=== PATIENT | male | born 1965 | race Caucasian/White ===

== ENCOUNTER 2021-12-25 12:18 | Emergency (ER) | payer BC ==
--- OUTSIDE RECORDS SUMMARY | 2021-12-25 12:24 | XMS REPORT | Continuity of Care Document ---
:1965 Author Organization [facility] t Address [address] [place] [address] [address] [place] [address] Care Team Providers Name Role Phone Thierno Delaney DO Attending Clinician Kelvin WHEELER Attending Clinician Doctor Unassigned, Name Attending Clinician Unavailable Payers Payer Name Policy Type Policy Number Effective Date Expiration Date S ource Problems Condition Condition Condition Status Onset Resolution Last Treating Co mments Source Name Details Category Date Date Treatment Clinician Date Papule of Papule of Disease Active 2014-10 Uni vers skin skin 2-06 ity of 00:00: [address] Inguinal Inguinal Disease Active 2014-10 Unive rs swelling swelling 2-06 ity of 00:00: [address] Penile Penile Disease Active 2014-10 Univers lesion lesion 2-06 ity of 00:00: [address] Allergic Allergic Disease Active 2014-10 Unive rs rhinitis rhinitis 2-03 ity of 00:00: [address] Allergies, Adverse Reactions, Alerts This patient has no known allergies or adverse reactions. Social History Social Habit Start Date Stop Date Quantity Comments Source History of Snuff User University of tobacco use [facility] Alcohol intake 2019-08-13 2019-08-13 Current drinker Unive rsity of 00:00:00 00:00:00 of alcohol [facility] (finding) [facility] Tobacco use and 2019-08-13 2019-08-13 Former user Universi ty of exposure 00:00:00 00:00:00 [facility] Sex Ass[birth year] At [birth year] Universit y of 00:00:00 00:00:00 [facility] Smoking Status Start Date Stop Date Source Never smoker [facility] Medications Ordered Filled Start Stop Current Ordering Indication Dosage Frequency Signature Comments Components Source Medication Medication Date Date Medication? Clinician (SIG) Name Name lisinopril Yes [id number] 20mg Take 1 U nivers 20 mg 3-06 tablet by ity of tablet 00:00: mouth [place] 00 daily. Medical Branch lisinopril 2020-0 Yes [id number] 20mg Take 1 U nivers 20 mg 3-06 tablet by ity of tablet 00:00: mouth [place] 00 daily. Medical Branch lisinopril 2020-0 Yes [id number] 20mg Take 1 U nivers 20 mg 3-06 tablet by ity of tablet 00:00: mouth [place] 00 daily. Medical Branch lisinopril 2020-0 Yes [id number] 20mg Take 1 U nivers 20 mg 3-06 tablet by ity of tablet 00:00: mouth [place] 00 daily. Medical Branch lisinopril 2020-0 Yes [id number] 20mg Take 1 U nivers 20 mg 2-07 tablet by ity of tablet 00:00: mouth [place] 00 daily. Medical Branch lisinopril 2020-0 2020- No [id number] 20mg Take 1 Univers 20 mg 2-07 03-06 tablet by ity of tablet 00:00: 00:00 mouth [place] 00 :00 daily. Medical Branch lisinopril 2019-0 Yes [id number] 20mg Take 1 U nivers 20 mg 1-15 tablet by ity of tablet 00:00: mouth [place] 00 daily. Medical Branch lisinopril 2019-0 2020- No [id number] 20mg Take 1 Univers 20 mg 1-15 02-07 tablet by ity of tablet 00:00: 00:00 mouth [place] 00 :00 daily. Medical Branch lisinopril 2018-10 2020- No [id number] 20mg Take 1 Univers 20 mg 2-19 -15 tablet by ity of tablet 00:00: 00:00 mouth [place] 00 :00 daily. Medical Branch predniSONE Yes Take 4 Unive rs 10 mg 2-13 tabs PO ity of tablet 00:00: qAM x 2 [place] 00 days, then Medical 3 tabs x 3 Branch days, then 2 tabs x 3 days, then 1 tab x 3 days predniSONE Yes Take 4 Unive rs 10 mg 2-13 tabs PO ity of tablet 00:00: qAM x 2 [place] 00 days, then Medical 3 tabs x 3 Branch days, then 2 tabs x 3 days, then 1 tab x 3 days predniSONE Yes Take 4 Unive rs 10 mg 2-13 tabs PO ity of tablet 00:00: qAM x 2 [place] 00 days, then Medical 3 tabs x 3 Branch days, then 2 tabs x 3 days, then 1 tab x 3 days predniSONE Yes Take 4 Unive rs 10 mg 2-13 tabs PO ity of tablet 00:00: qAM x 2 [place] 00 days, then Medical 3 tabs x 3 Branch days, then 2 tabs x 3 days, then 1 tab x 3 days predniSONE Yes Take 4 Unive rs 10 mg 2-13 tabs PO ity of tablet 00:00: qAM x 2 [place] 00 days, then Medical 3 tabs x 3 Branch days, then 2 tabs x 3 days, then 1 tab x 3 days predniSONE Yes Take 4 Unive rs 10 mg 2-13 tabs PO ity of tablet 00:00: qAM x 2 [place] 00 days, then Medical 3 tabs x 3 Branch days, then 2 tabs x 3 days, then 1 tab x 3 days predniSONE Yes Take 4 Unive rs 10 mg 2-13 tabs PO ity of tablet 00:00: qAM x 2 [place] 00 days, then Medical 3 tabs x 3 Branch days, then 2 tabs x 3 days, then 1 tab x 3 days zolpidem 2016-10 Yes 10mg Take 10 mg Uni vers (AMBIEN) 10 0-24 by mouth ity of mg tablet 14:51: at bedtime [place] 51 as needed Medical for Branch Insomnia. FLUTICASONE 2016-10 Yes 50mg 50 mg. Univ ers PROPIONATE, 0-24 ity of BULK, MISC 14:51: [place] [address] Medical Branch fexofenadin 2016-10 Yes 180mg Take 180 U nivers e (JOSE 0-24 mg by ity of ALLERGY) 14:51: mouth [place] 180 mg 51 daily. Medical tablet Branch zolpidem 2016-10 Yes 10mg Take 10 mg Uni vers (AMBIEN) 10 0-24 by mouth ity of mg tablet 14:51: at bedtime [place] 51 as needed Medical for Branch Insomnia. FLUTICASONE 2016-10 Yes 50mg 50 mg. Univ ers PROPIONATE, 0-24 ity of BULK, MISC 14:51: [place] [address] Medical Branch fexofenadin 2016-10 Yes 180mg Take 180 U nivers e (JOSE 0-24 mg by ity of ALLERGY) 14:51: mouth [place] 180 mg 51 daily. Medical tablet Branch zolpidem 2016-10 Yes 10mg Take 10 mg Uni vers (AMBIEN) 10 0-24 by mouth ity of mg tablet 14:51: at bedtime [place] 51 as needed Medical for Branch Insomnia. FLUTICASONE 2016-10 Yes 50mg 50 mg. Univ ers PROPIONATE, 0-24 ity of BULK, MISC 14:51: [place] [address] Medical Branch fexofenadin 2016-10 Yes 180mg Take 180 U nivers e (JOSE 0-24 mg by ity of ALLERGY) 14:51: mouth [place] 180 mg 51 daily. Medical tablet Branch zolpidem 2016-10 Yes 10mg Take 10 mg Uni vers (AMBIEN) 10 0-24 by mouth ity of mg tablet 14:51: at bedtime [place] 51 as needed Medical for Branch Insomnia. FLUTICASONE 2016-10 Yes 50mg 50 mg. [facility] ers PROPIONATE, 0-24 ity of BULK, MISC 14:51: [place] [address] Medical Branch fexofenadin 2016-10 Yes 180mg Take 180 U nivers e (JOSE 0-24 mg by ity of ALLERGY) 14:51: mouth [place] 180 mg 51 daily. Medical tablet Branch zolpidem 2016-10 Yes 10mg Take 10 mg Uni vers (AMBIEN) 10 0-24 by mouth ity of mg tablet 14:51: at bedtime [place] 51 as needed Medical for Branch Insomnia. FLUTICASONE 2016-10 Yes 50mg 50 mg. Univ ers PROPIONATE, 0-24 ity of BULK, MISC 14:51: [place] [address] Medical Branch fexofenadin 2016-10 Yes 180mg Take 180 U nivers e (JOSE 0-24 mg by ity of ALLERGY) 14:51: mouth [place] 180 mg 51 daily. Medical tablet Branch zolpidem 2016-10 Yes 10mg Take 10 mg Uni vers (AMBIEN) 10 0-24 by mouth ity of mg tablet 14:51: at bedtime [place] 51 as needed Medical for Branch Insomnia. FLUTICASONE 2016-10 Yes 50mg 50 mg. Univ ers PROPIONATE, 0-24 ity of BULK, MISC 14:51: [place] [address] Medical Branch fexofenadin 2016-10 Yes 180mg Take 180 U nivers e (JOSE 0-24 mg by ity of ALLERGY) 14:51: mouth [place] 180 mg 51 daily. Medical tablet Branch zolpidem 2016-10 Yes 10mg Take 10 mg Uni vers (AMBIEN) 10 0-24 by mouth ity of mg tablet 14:51: at bedtime [place] 51 as needed Medical for Branch Insomnia. FLUTICASONE 2016-10 Yes 50mg 50 mg. Univ ers PROPIONATE, 0-24 ity of BULK, MISC 14:51: [place] [address] Medical Branch fexofenadin 2016-10 Yes 180mg Take 180 U nivers e (JOSE 0-24 mg by ity of ALLERGY) 14:51: mouth [place] 180 mg 51 daily. Medical tablet Branch Immunizations Ordered Filled Immunization Date Status Comments Sourc e Immunization Name Name [facility] 2019-02-17 Completed University of 00:00:00 [facility] 2019-02-17 Completed University of 00:00:00 [facility] 2019-02-17 Completed University of 00:00:00 [facility] 2019-02-17 Completed University of 00:00:00 [facility] 2019-02-17 Completed University of 00:00:00 [facility] 2019-02-17 Completed University of 00:00:00 [facility] 2019-02-17 Completed University of 00:00:00 [facility] Procedures Procedure Date / Time Performing Clinician Source Performed AUTHORIZATION FOR 2019-11-22 06:01:00 Doctor Unassigned, No [facility] RELEASE OF PHI Name Medical Branch Encounters Start End Encounter Admission Attending Care Care Encounter Source Date/Time Date/Time Type Type Clinicians Facility Department ID 2021-01-09 2021-01-09 Patient Rhett [facility] [id number] Univers 00:00:00 00:00:00 Outreach Chevy PASCUAL [id number] i ty of [facility] [id number] Tosha DUCKWORTH [phone] Me dical 388 Branch 2020-01-20 2020-01-20 Telephone Kelvin AKMARK [id number] Univers 00:00:00 00:00:00 Pascual Reeves [id number] i ty [id number] [phone] [address] 2019-12-27 2019-12-27 Bryandoug Warren [facility] [id number] Univers 00:00:00 00:00:00 [facility] [id number] it y of [place] [id number] [place] as Professio [phone] [address] One 2019-12-24 2019-12-24 [facility] [id number] Univers 00:00:00 00:00:00 [facility] [id number] it y of [place] [id number] [place] Professio [phone] [address] 2019-11-26 2019-11-26 [facility] [id number] Univers 00:00:00 00:00:00 [facility] [id number] it y of [place] [id number] [place] Professio [phone] [address] One 2019-11-22 2019-11-22 Orders Doctor RAFA [id number] Univers 00:00:00 00:00:00 Only Unassigned, NEGAR [id number] ity of [place] [facility] [id number] [place] as [phone] [address] 2019-11-03 2019-11-03 [facility] [id number] Univers 00:00:00 00:00:00 [facility] [id number] it y of [place] [id number] [place] Professio [phone] [address] Office [facility] One Results This patient has no known results.
[2021-12-25] MEDS ORDERED: NA CHLORIDE 0.9% 1,000 ML ONE (13:28)
--- NOTE | 2021-12-25 13:29 | RAD REPORT ---
EXAM DESCRIPTION: CT - Head Brain Wo Cont - 12/25/2021 1:19 pm CLINICAL HISTORY: Alteration of awareness/confusion COMPARISON: None TECHNIQUE: Computed axial tomography of the head was obtained. IV contrast was not requested. All CT scans are performed using dose optimization technique as appropriate and may include automated exposure control or mA/KV adjustment according to patient size. FINDINGS: An intracranial bleed is not seen . The ventricles are normal in caliber. No extra-axial fluid collection is noted. Low-density areas are present within the medial frontal lobes bilaterally Fluid within the sinuses/ mastoids is not seen. IMPRESSION: Low-density areas within the medial frontal lobes bilaterally probably either representi ng volume averaging of CSF or chronic changes. No acute intracranial abnormality is seen. If patient's symptoms persist MRI of the brain would be r ecommended.
[2021-12-25 13:36] LABS: Absolute Lymphocytes (CBC) 1.6 K/uL (0.7-4.9); Hematocrit 40.6 % (39.6-49.0); Lymphocytes % 15.6 % (15.3-44.8); MPV 8.1 fL (7.6-11.3); RBC Red Blood Cell Count 4.63 M/uL (4.33-5.43)
[2021-12-25 13:38] LABS: Urine Blood Negative (Negative); Urine Glucose Negative (Negative); Urine Protein Negative (Negative); Urine Specific Gravity 1.015 (1.005-1.030); Urine pH 7.5 (5.0-7.0)
[2021-12-25 13:49] LABS: Urine Bacteria <20 /HPF (NONE SEEN); Urine RBC <5 /HPF (NONE SEEN)
[2021-12-25 13:52] LABS: Barbiturates NEGATIVE (NEGATIVE); Benzodiazepines NEGATIVE (NEGATIVE); Cocaine NEGATIVE (NEGATIVE); METHAMPHETAM NEGATIVE (NEGATIVE); Methadone NEGATIVE (NEGATIVE); Opiates NEGATIVE (NEGATIVE); Phencyclidine NEGATIVE (NEGATIVE); THC Cannibis POSITIVE (NEGATIVE)
[2021-12-25 13:53] LABS: ALT/SGPT 37 U/L (12-78); AST/SGOT 37 U/L (15-37); Albumin 4.1 g/dL (3.4-5.0); Alkaline Phosphatase 113 U/L (45-117); BUN Blood Urea Nitrogen 8 mg/dL (7-18); Bicarbonate 29 mmol/L (21-32); Bilirubin Direct 0.2 mg/dL (0-0.2); Bilirubin Total 0.5 mg/dL (0.2-1.0); Glucose Level 127 mg/dL (74-106); Lipase 244 U/L (73-393); Potassium 3.9 mmol/L (3.5-5.1); Protein, Total 8.7 g/dL (6.4-8.2); Sodium Level 132 mmol/L (136-145)
[2021-12-25 14:05] LABS: Thyroid Stimulating Hormone 1.42 uIU/mL (0.360-3.740)
[2021-12-25 14:19] LABS: SARS-COV-2 RT PCR NEGATIVE (NEGATIVE)
--- NOTE | 2021-12-25 14:24 | ER ---
Nurse's Notes [facility] Jennifer Name: Guanakito Arreola Age: 56 yrs Sex: Male : 1965 Arrival Date: 12/25/2021 Time: 12:23 Bed 5 Private MD: César Cleaning T Diagnosis: Cerebral Atrophy;Infectious mononucleosis, unspecified without complication;Alcohol dependence with alcohol-induced sleep disorder Presentation: 12/25 12:49 Chief complaint: Patient states: Confusion, lethargic, fatigue off/on since . ll1 Coronavirus screen: Vaccine status: Patient reports being unvaccinated. Client denies travel out of the [place] in the last 14 days. fatigue, At this time, the client does not indicate any symptoms associated with coronavirus-19. Ebola Screen: Patient denies travel to an Ebola-affected area in the 21 days before illness onset. Initial Sepsis Screen: Does the patient meet any 2 criteria? No. Patient's initial sepsis screen is negative. Does the patient have a suspected source of infection? No. Patient's initial sepsis screen is negative. Risk Assessment: Do you want to hurt yourself or someone else? Patient reports no desire to harm self or others. Onset of symptoms was December 20, 2021. 12:49 Method Of Arrival: Ambulatory ll1 12:49 Acuity: ONI 2 ll1 Triage Assessment: 13:00 General: Appears in no apparent distress. Behavior is calm, cooperative, appropriate ll1 for age. Pain: Denies pain. Neuro: Reports confusion, lethargic. Historical: - Allergies: 12:59 No Known Allergies; ll1 - PMHx: 12:59 Hypertensive disorder; ll1 - PSHx: 12:59 None; ll1 - Immunization history:: Client reports having NOT received the Covid vaccine. - Social history:: Smoking status: Patient denies any tobacco usage or history of. - Family history:: not pertinent. - Hospitalizations: : No recent hospitalization is reported. Screenin:21 Abuse screen: Denies threats or abuse. Denies injuries from another. Nutritional murphy screening: No deficits noted. Tuberculosis screening: No symptoms or risk factors identified. Fall Risk IV access (20 points). Assessment: 13:21 General: Appears in no apparent distress. Behavior is anxious. Pain: Denies pain. murphy Neuro: Reports fatigue and confusion. Cardiovascular: Reports fatigue. Vital Signs: 12:49 BP 159 / 93; Pulse 70; Resp 16; Temp 98.4; Pulse Ox 99% on R/A; Weight 81.65 kg; Height murphy 6 ft. 0 in. (182.88 cm); Pain 0/10; 13:54 BP 145 / 84; Pulse 69; Resp 18; Pulse Ox 100% on R/A; ic1 14:31 BP 147 / 81; Pulse 72; Resp 20; Pulse Ox 100% on R/A; ic1 12:49 Body Mass Index 24.41 (81.65 kg, 182.88 cm) murphy ED Course: 12:23 Patient arrived in ED. mr 12:24 César Cleaning MD is Private Physician. mr 12:47 Jose Cleveland MD is Attending Physician. rn 12:48 Arm band placed on Patient placed in an exam room, on a stretcher. ll1 13:01 Triage completed. ll1 13:19 CT Head Brain wo Cont In Process Unspecified. EDMS 13:20 Michelle Acevedo, RN is Primary Nurse. murphy 13:20 ETOH Level Sent. murphy 13:20 Urine Drug Screen Sent. murphy 13:20 COVID-19/FLU A+B (Document "Date of Onset" if Symptomatic) Sent. murphy 13:20 Lipase Sent. murphy 13:20 Petroleum Screen Profile Sent. murphy 13:20 LFT's Sent. murphy 13:20 AMMONIA Sent. murphy 13:20 Basic Metabolic Panel Sent. murphy 13:20 CBC with Diff Sent. murphy 13:21 Patient has correct armband on for positive identification. Bed in low position. murphy 13:21 No provider procedures requiring assistance completed. Inserted saline lock: 20 gauge murphy in right antecubital area, using aseptic technique. 13:37 Urine Microscopic Only Sent. ic1 13:43 T4 Free Sent. murphy 13:43 TSH Sent. murphy 14:23 Franklyn Bennett MD is Referral Physician. rn 14:31 IV discontinued, intact, bleeding controlled, No redness/swelling at site. Pressure ic1 dressing applied. Administered Medications: 13:37 Drug: NS 0.9% 1000 ml Route: IV; Rate: 1000 ml; Site: right antecubital; ic1 Outcome: 14:23 Discharge ordered by . rn 14:31 Discharged to home ambulatory, with significant other. ic1 14:31 Condition: stable 14:31 Discharge instructions given to patient, Instructed on discharge instructions, follow up and referral plans. Demonstrated understanding of instructions, follow-up care. 14:35 Patient left the ED. ic1 Signatures: Dispatcher [employer]am BoboJose MD MD rn Lewis, Lynsay, RN RN ll1 Michelle Acevedo RN RN ha Creggett, Iesha, RN RN ic1 Corrections: (The following items were deleted from the chart) 12:59 12:59 Immunization history: Client reports having NOT received the Covid vaccine. ll1 ll1 13:23 12:49 BP 159 / 93; Pulse 70bpm; Resp 16bpm; Temp 98.4F; 81.65 kg; Height 6 ft. 0 in.; murphy BMI: 24.4; Pain 0/10; ll1
--- NOTE | 2021-12-25 14:24 | EDPHYS ---
Physician Documentation [facility] Jennifer Name: Guanakito Arreola Age: 56 yrs Sex: Male : 1965 Arrival Date: 12/25/2021 Time: 12:23 Bed 5 Private MD: César Cleaning T ED Physician Jose Cleveland HPI: 12/25 13:25 This 56 yrs old Male presents to ER via Ambulatory with complaints of Fatigue,Confusion.rn 13:25 The patient presents with confusion. Onset: The symptoms/episode began/occurred 4 rn day(s) ago. Possible causes: unknown. Associated signs and symptoms: Pertinent positives: confusion, Pertinent negatives: abdominal pain, ataxia, blurred vision, chest pain, diaphoresis, headache, palpitations, seizure, shortness of breath. Current symptoms: In the emergency department the patient's symptoms have improved. The patient has not experienced similar symptoms in the past. The patient has not recently seen a physician. Pt and report confusion for last 4 days, drinks daily and large amount, last drink yesterday, had not tried to quit recently, has still been drinking daily except for today. No fever. Bloodwork last week didn't reveal anything abnormal. No fall or head injury. states had an argument the other day, he drove off, then didn't recall argument and got lost, didn't know where he was going. 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 Reports increased fatigue lately. No fever/cough/sob/chest pain/abd pain /vomiting/diarrhea. No recent change in medication. Reports mother had early onset dementia.. Historical: - Allergies: 12:59 No Known Allergies; ll1 - PMHx: 12:59 Hypertensive disorder; ll1 - PSHx: 12:59 None; ll1 - Immunization history:: Client reports having NOT received the Covid vaccine. - Social history:: Smoking status: Patient denies any tobacco usage or history of. - Family history:: not pertinent. - Hospitalizations: : No recent hospitalization is reported. ROS: 13:25 Constitutional: Negative for fever, chills, and weight loss, Eyes: Negative for injury, rn pain, redness, and discharge, ENT: Negative for injury, pain, and discharge, Neck: Negative for injury, pain, and swelling, Cardiovascular: Negative for chest pain, palpitations, and edema, Respiratory: Negative for shortness of breath, cough, wheezing, and pleuritic chest pain, Abdomen/GI: Negative for abdominal pain, nausea, vomiting, diarrhea, and constipation, Back: Negative for injury and pain, : Negative for injury, bleeding, discharge, and swelling, MS/Extremity: Negative for injury and deformity, Skin: Negative for injury, rash, and discoloration, Neuro: Negative for headache, weakness, numbness, tingling, and seizure. Exam: 13:25 Constitutional: This is a well developed, well nourished patient who is awake, alert, rn and in no acute distress. Ambulatory to room without difficulty or assistance. Head/Face: Normocephalic, atraumatic. Eyes: Pupils equal round and reactive to light, extra-ocular motions intact. Lids and lashes normal. Conjunctiva and sclera are non-icteric and not injected. Cornea within normal limits. Periorbital areas with no swelling, redness, or edema. ENT: dry MM Neck: Trachea midline, no thyromegaly or masses palpated, and no cervical lymphadenopathy. Supple, full range of motion without nuchal rigidity, or vertebral point tenderness. No Meningismus. Cardiovascular: Regular rate and rhythm. No pulse deficits. Respiratory: Speaking full sentences, unlabored. No increased work of breathing, no retractions or nasal flaring. Abdomen/GI: Soft, non-tender Skin: Warm, dry MS/ Extremity: Pulses equal, no cyanosis. Neurovascular intact. Full, normal range of motion. Equal circumference. Neuro: Awake and alert, GCS 15, oriented to person, place, time, and situation. Cranial nerves II-XII grossly intact. Motor strength 5/5 in all extremities. Sensory grossly intact. Cerebellar exam normal. Normal gait. Mild extremity tremor. Vital Signs: 12:49 BP 159 / 93; Pulse 70; Resp 16; Temp 98.4; Pulse Ox 99% on R/A; Weight 81.65 kg; Height murphy 6 ft. 0 in. (182.88 cm); Pain 0/10; 13:54 BP 145 / 84; Pulse 69; Resp 18; Pulse Ox 100% on R/A; ic1 14:31 BP 147 / 81; Pulse 72; Resp 20; Pulse Ox 100% on R/A; ic1 12:49 Body Mass Index 24.41 (81.65 kg, 182.88 cm) murphy MDM: 12:47 Patient medically screened. rn 14:22 Differential Diagnosis: electrolyte abnormality, volume depletion, ETOH withdrawal, rn Crockett, viral syndrome, thyroid abnormality, depression. Data reviewed: vital signs, nurses notes, lab test result(s), EKG, radiologic studies, CT scan, and as a result, I will discharge patient. Counseling: I had a detailed discussion with the patient and/or guardian regarding: the historical points, exam findings, and any diagnostic results supporting the discharge/admit diagnosis, lab results, radiology results, the need for outpatient follow up, to return to the emergency department if symptoms worsen or persist or if there are any questions or concerns that arise at home. Response to treatment: the patient's symptoms have mildly improved after treatment, and as a result, I will discharge patient. Special discussion: I discussed with the patient/guardian in detail that at this point there is no indication for admission to the hospital. It is understood, however, that if the symptoms persist or worsen the patient needs to return immediately for re-evaluation. ED course: Had long talk about ETOH dependence and need to quit, understands, mono+, return precautions given and understood.. 12/25 13:07 Order name: CBC with Diff; Complete Time: 14: rn 12/25 13:07 Order name: Basic Metabolic Panel; Complete Time: 14: rn 12/25 13:07 Order name: Urine Microscopic Only; Complete Time: 14: rn 12/25 13:07 Order name: LFT's; Complete Time: 14: rn 12/25 13:07 Order name: AMMONIA; Complete Time: 14: rn 12/25 13:07 Order name: Crockett Screen Profile; Complete Time: 14: rn 12/25 13:07 Order name: CT Head Brain wo Cont; Complete Time: 13:30 rn 12/25 13:07 Order name: COVID-19/FLU A+B (Document "Date of Onset" if Symptomatic); Complete Time: rn 14:22 12/25 13:07 Order name: Lipase; Complete Time: 14: rn 12/25 13:07 Order name: Urine Drug Screen; Complete Time: 14: rn 12/25 13:08 Order name: ETOH Level; Complete Time: 14: rn 12/25 13:29 Order name: TSH; Complete Time: 14:22 rn 12/25 13:29 Order name: T4 Free; Complete Time: 14:22 rn 12/25 13:38 Order name: Urine Dipstick-Ancillary; Complete Time: 14: EDMS 12/25 13:07 Order name: IV Start; Complete Time: 13:20 rn 12/25 13:07 Order name: Urine Dipstick-Ancillary (obtain specimen); Complete Time: 13:37 rn 12/25 13:07 Order name: EKG; Complete Time: 13:08 rn 12/25 13:07 Order name: EKG - Nurse/Tech; Complete Time: 13:37 rn 12/25 13:07 Order name: Cardiac monitoring; Complete Time: 13:20 rn 12/25 13:07 Order name: O2 Sat Monitoring; Complete Time: 13:20 rn Administered Medications: 13:37 Drug: NS 0.9% 1000 ml Route: IV; Rate: 1000 ml; Site: right antecubital; ic1 Disposition Summary: 12/25/21 14:23 Discharge Ordered Location: Home rn Problem: new rn Symptoms: have improved rn Condition: Stable rn Diagnosis - Cerebral Atrophy rn - Infectious mononucleosis, unspecified without complication rn - Alcohol dependence with alcohol-induced sleep disorder rn Followup: rn - With: Private Physician - When: As needed - Reason: Recheck today's complaints, Re-evaluation by your physician Followup: rn - With: Franklyn Bennett MD - When: As needed - Reason: Recheck today's complaints, Re-evaluation by your physician Discharge Instructions: - Discharge Summary Sheet rn - Infectious Mononucleosis rn - Alcohol Abuse and Dependence Information, Adult rn Forms: - Medication Reconciliation Form rn - Thank You Letter rn - Antibiotic commercial litigation attorney - Prescription Opioid Use rn Signatures: Dispatcher [employer] Jose Albrecht MD MD rn Lewis, Lynsay, RN RN ll1 Smitha Tay RN RN ic1 Corrections: (The following items were deleted from the chart) 12:59 12:59 Immunization history: Client reports having NOT received the Covid vaccine. ll1 ll1 13:30 13:25 Constitutional: This is a well developed, well nourished patient who is awake, rn alert, and in no acute distress. Ambulatory to room without difficulty or assistance. Head/Face: Normocephalic, atraumatic. Eyes: Pupils equal round and reactive to light, extra-ocular motions intact. Lids and lashes normal. Conjunctiva and sclera are non-icteric and not injected. Cornea within normal limits. Periorbital areas with no swelling, redness, or edema. ENT: dry MM Cardiovascular: Regular rate and rhythm. No pulse deficits. Respiratory: Speaking full sentences, unlabored. No increased work of breathing, no retractions or nasal flaring. Abdomen/GI: Soft, non-tender rn
[2021-12-25 14:40] VITALS: TEMP 98.4
[2021-12-25 14:42] VITALS: O2SAT 100
[2021-12-25 14:43] VITALS: BP 147/81
--- NOTE | 2021-12-26 12:55 | EKG ---
Test Date: 2021-12-25 Test Time: 13:28:02 [employer]ck[employer] Fishing Vessel: IC MEASUREMENT RESULTS: Intervals: Rate: 67 FL: 164 QRSD: 102 QT: 412 QTc: 435 [place]: P: 29 FL: 164 QRS: 25 T: 37 INTERPRETIVE STATEMENTS: Normal sinus rhythm Possible Left atrial enlargement Borderline ECG No previous ECG available for comparison Electronically Signed On 12-26-21 12:52:08 ZIPPER JOINER by Paulino Tobias
== END 2021-12-25 14:35 | disposition home or self-care (01) ==
LOC: ER 12:18
DX: G31.9 Degenerative disease of nervous system, unspecified (principal); B27.90 Infectious mononucleosis, unspecified without complication; F10.282 Alcohol dependence with alcohol-induced sleep disorder; I10 Essential (primary) hypertension; Z20.822 Contact with and (suspected) exposure to COVID-19
CPT/HCPCS: 93005; 85025; 80048; 36415; 80320; 82140; 86308; 80076; 84443; 84439; 83690; 0240U; 80307; 70450; 99284; J7030; 81003; 81015

== ENCOUNTER 2022-06-28 14:48 | Emergency (ER) | payer BC, OTHER ==
--- OUTSIDE RECORDS SUMMARY | 2022-06-28 14:51 | XMS REPORT | Continuity of Care Document ---
:1965 Author Organization [facility] t Address [address] [place] [address] [address] [place] [address] Care Team Providers Name Role Phone Chevy Delaney DO Attending Clinician Pascual Warren MD Attending Clinician Doctor Unassigned, [place] Attending Clinician Unavailable Payers Payer Name Policy Type Policy Number Effective Date Expiration Date S ource Problems Condition Condition Condition Status Onset Resolution Last Treating Co mments Source Name Details Category Date Date Treatment Clinician Date Papule of Papule of Disease Active 2014-10 Uni vers skin skin 2-06 ity of 00:00: [address] Inguinal Inguinal Disease Active 2014-10 Unive rs swelling swelling 2-06 ity of 00:00: [address] Penile Penile Disease Active 2014-10 Univers lesion lesion 2-06 ity of 00:00: [address] Allergic Allergic Disease Active 2014-10 Unive rs rhinitis rhinitis 2-03 ity of 00:00: [address] Allergies, Adverse Reactions, Alerts This patient has no known allergies or adverse reactions. Social History Social Habit Start Date Stop Date Quantity Comments Source History of Snuff User University of tobacco use [facility] Alcohol intake 2019-08-13 2019-08-13 Current drinker Unive rsity of 00:00:00 00:00:00 of alcohol [facility] (finding) [place] Tobacco use and 2019-08-13 2019-08-13 Former user Universi ty of exposure 00:00:00 00:00:00 [facility] Sex Ass[birth year] At [birth year] Universit y of 00:00:00 00:00:00 [facility] Smoking Status Start Date Stop Date Source Never smoker [facility] Medications Ordered Filled Start Stop Current Ordering Indication Dosage Frequency Signature Comments Components Source Medication Medication Date Date Medication? Clinician (SIG) Name Name sabrapril 2020-0 Yes [id number] 20mg Take 1 U nivers 20 mg 3-06 tablet by ity of tablet 00:00: mouth [place] 00 daily. Medical Branch lisinopril 2020-0 Yes [id number] 20mg Take 1 U nivers 20 mg 3-06 tablet by ity of tablet 00:00: mouth [place] 00 daily. Medical Branch lisinopril 2019-0 Yes [id number] 20mg Take 1 U nivers 20 mg 3-06 tablet by ity of tablet 00:00: mouth [place] 00 daily. Medical Branch lisinopril 2019-0 Yes [id number] 20mg Take 1 U nivers 20 mg 3-06 tablet by ity of tablet 00:00: mouth [place] 00 daily. [facility] Branch lisinopril 2019-0 Yes [id number] 20mg Take 1 U nivers 20 mg 2-07 tablet by ity of tablet 00:00: mouth [place] 00 daily. [facility] Branch lisinopril 2019-0 2020- No [id number] 20mg Take 1 Univers 20 mg 2-07 03-06 tablet by ity of tablet 00:00: 00:00 mouth [place] 00 :00 daily. [facility] Branch lisinopril 2019-0 Yes [id number] 20mg Take 1 U nivers 20 mg 1-15 tablet by ity of tablet 00:00: mouth [place] 00 daily. [facility] Branch lisinopril 2019-0 2020- No [id number] 20mg Take 1 Univers 20 mg 1-15 02-07 tablet by ity of tablet 00:00: 00:00 mouth [place] 00 :00 daily. [facility] Branch lisinopril 2018-10 2020- No [id number] 20mg Take 1 Univers 20 mg 2-19 01-15 tablet by ity of tablet 00:00: 00:00 [...] PROPIONATE, 0-24 ity of BULK, MISC 14:51: [place] [id number] Medical Branch fexofenadin 2016-10 Yes 180mg Take [...] PROPIONATE, 0-24 ity of BULK, MISC 14:51: [place] [id number] Medical Branch fexofenadin 2016-10 Yes 180mg Take 180 U nivers e (JOSE 0-24 mg by ity of ALLERGY) 14:51: mouth [place] 180 mg 51 daily. Medical tablet Branch zolpidem 2016-10 Yes 10mg Take 10 mg Uni vers (AMBIEN) 10 0-24 by mouth ity of mg tablet 14:51: at bedtime [place] 51 as needed Medical for Branch Insomnia. FLUTICASONE 2017 Yes 50mg 50 mg. Univ ers PROPIONATE, 0-24 ity of BULK, MISC 14:51: [place] [id number] Medical Branch fexofenadin 2016-10 Yes 180mg Take [...] PROPIONATE, 0-24 ity of BULK, MISC 14:51: [place] [address] Medical Branch fexofenadin 2016-10 Yes 180mg Take [...] PROPIONATE, 0-24 ity of BULK, MISC 14:51: [place] [address] Medical Branch fexofenadin 2016-10 Yes 180mg Take [...] PROPIONATE, 0-24 ity of BULK, MISC 14:51: [place] [address] Medical Branch fexofenadin 2016-10 Yes 180mg Take [...] Insomnia. FLUTICASONE 2016-10 Yes 50mg 50 mg. [facility] ers PROPIONATE, 0-24 ity of BULK, MISC 14:51: [place] [id number] Medical Branch fexofenadin 2016-10 Yes 180mg Take 180 U nivers e (JOSE 0-24 mg by ity of ALLERGY) 14:51: mouth [place] 180 mg 51 daily. Medical tablet Branch Immunizations Ordered Filled Immunization Date Status Comments Sour e Immunization Name Name [facility] 2019-02-17 Completed University 00:00:00 [facility] 2019-02-17 Completed University 00:00:00 [facility] 2019-02-17 Completed University of 00:00:00 [facility] 2019-02-17 Completed University of 00:00:00 [facility] 2019-02-17 Completed University of 00:00:00 [facility] 2019-02-17 Completed University of 00:00:00 [facility] 2019-02-17 Completed University 00:00:00 [facility] Procedures Procedure Date / Time Performing Clinician Source Performed AUTHORIZATION FOR 2019-11-22 06:01:00 Doctor Unassigned, No [facility] RELEASE OF PHI Name Medical Branch Encounters Start End Encounter Admission Attending Care Care Encounter Source Date/Time Date/Time Type Type Clinicians Facility Department ID 2021-01-09 2021-01-09 Patient ALEXIS Delaney [id number] Univers 00:00:00 00:00:00 Outreach Chevy PRIMARY [id number] i ty of [facility] [id number] [place] vega GUCCI [id number] Nh dical 388 Branch 2020-01-20 2020-01-20 Telephone ALEXIS Warren [id number] Univers 00:00:00 00:00:00 Pascual Reeves [id number] i ty [id number] Profess[place] [phone] [address] 2019-12-27 2019-12-27 [facility] [id number] Univers 00:00:00 00:00:00 Pascual [facility] [id number] it y of [place] [id number] Bruno as Professio [phone] [address] Office [facility] One 2019-12-24 2019-12-24 [facility] [id number] Univers 00:00:00 00:00:00 Pascual [facility] [id number] it y of [place] [id number] [place] as Professio [phone] [address] 2019-11-26 2019-11-[address] [facility] [id number] Univers 00:00:00 00:00:00 [facility] [id number] it y of [place] [id number] [place] Professio [phone] [address] One 2019-11-22 2019-11-22 Orders Doctor RAFA [id number] Univers 00:00:00 00:00:00 Only Unassigned, NEGAR [id number] ity of [place] [facility] [id number] Bruno as [phone] [address] 2019-11-03 2019-11-03 [facility] [id number] Univers 00:00:00 00:00:00 [facility] [id number] it y of [place] [id number] [place] as Professio [phone] [address] Office [facility] One Results This patient has no known results.
--- NOTE | 2022-06-28 15:59 | RAD REPORT ---
EXAM DESCRIPTION: CT - Head Brain Wo Cont - 06/28/2022 3:37 pm CLINICAL HISTORY: Seizure COMPARISON: December 2021 TECHNIQUE: Computed axial tomography of the head was obtained. IV contrast was not requested. All CT scans are performed using dose optimization technique as appropriate and may include automated exposure control or mA/KV adjustment according to patient size. FINDINGS: An intracranial bleed is not seen . The ventricles are normal in caliber. No extra-axial fluid collection is noted. Low-density within the medial frontal lobes unchanged is chronic. Fluid within the sinuses/ mastoids is not seen. IMPRESSION: No acute intracranial abnormality is seen. If patient's symptoms persist MRI of the bra in would be recommended.
[2022-06-28 16:11] LABS: Absolute Lymphocytes (CBC) 0.6 K/uL (0.7-4.9); Hematocrit 38.9 % (39.6-49.0); Lymphocytes % 6.1 % (15.3-44.8); MCV 92.7 fL (80-100); MPV 8.2 fL (7.6-11.3)
[2022-06-28 16:11] LABS: Urine Blood Negative (Negative); Urine Glucose Negative (Negative); Urine Protein Trace (Negative)
[2022-06-28 16:12] LABS: Blood Morphology Comment NOT SEEN (NOT SEEN); Platelet Estimate ADEQ; White Blood Cell Scan OK (OK)
[2022-06-28 16:24] LABS: Barbiturates NEGATIVE (NEGATIVE); Benzodiazepines NEGATIVE (NEGATIVE); Cocaine NEGATIVE (NEGATIVE); METHAMPHETAM NEGATIVE (NEGATIVE); Methadone NEGATIVE (NEGATIVE); Opiates NEGATIVE (NEGATIVE); Phencyclidine NEGATIVE (NEGATIVE); THC Cannibis NEGATIVE (NEGATIVE)
--- NOTE | 2022-06-28 16:34 | RAD REPORT ---
EXAM DESCRIPTION: Lei Single View06/28/2022 3:52 pm CLINICAL HISTORY: Seizure COMPARISON: none FINDINGS: The lungs appear clear of acute infiltrate. The heart is normal size IMPRESSION: No acute abnormalities displayed
[2022-06-28 17:00] LABS: Albumin 3.7 g/dL (3.4-5.0); Bilirubin Total 0.6 mg/dL (0.2-1.0); Magnesium 2.6 mg/dL (1.8-2.4); Protein, Total 8.2 g/dL (6.4-8.2)
[2022-06-28 17:24] LABS: Troponin High Sensitivity 6.5 pg/mL (<58.9)
[2022-06-28] MEDS ORDERED: NA CHLORIDE 0.9% 1,000 ML ONE (17:41)
[2022-06-28] MEDS ORDERED: LEVETIRACETAM 500 MG/5 ML VIAL IV ONE (17:48)
[2022-06-28] MEDS ORDERED: NA CHLORIDE 0.9% 0 ML ONE (17:48)
--- NOTE | 2022-06-28 19:06 | ER ---
Nurse's Notes [facility] Jennifer Name: Guanakito Arreola Age: 57 yrs Sex: Male : 1965 Arrival Date: 06/28/2022 Time: 14:53 Bed 7 Private MD: Diagnosis: Other seizures Presentation: 06/28 14:57 Chief complaint: Patient states: New onset seizure that occurred 30 minutes ago. BGL ss 140. Coronavirus screen: Client denies travel out of the [place] in the last 14 days. Ebola Screen: Patient denies exposure to infectious person. Patient denies travel to an Ebola-affected area in the 21 days before illness onset. Initial Sepsis Screen: Does the patient meet any 2 criteria? No. Patient's initial sepsis screen is negative. Does the patient have a suspected source of infection? No. Patient's initial sepsis screen is negative. Risk Assessment: Do you want to hurt yourself or someone else? Patient reports no desire to harm self or others. Onset of symptoms was June 28, 2022. 14:57 Method Of Arrival: EMS: [facility] ss 14:57 Acuity: ONI 2 ss 15:01 Care prior to arrival: IV initiated. 20 GA, in the left antecubital area, Glucose ss check: 140. 17:48 Note Patient ambulated to bathroom with standby assistance for BM. Patient tolerated jl7 well. Triage Assessment: 16:31 General: Appears in no apparent distress. Behavior is calm, cooperative, appropriate ko1 for age, anxious. Pain: Denies pain. Neuro: No deficits noted. Historical: - Allergies: 14:59 Unable to obtain; ss - PMHx: 14:59 Hypertensive disorder; ss - Immunization history:: Adult Immunizations unknown, Client reports receiving the 2nd dose of the Covid vaccine. - Social history:: Patient uses alcohol, Drinks on Wednesdays and Saturdays only, approximately 4 beers. Smoking status: Patient denies any tobacco usage or history of. Screenin:51 Abuse screen: Denies threats or abuse. Denies injuries from another. Nutritional ll3 screening: No deficits noted. Tuberculosis screening: No symptoms or risk factors identified. 19:52 Fall Risk None identified. ll3 Vital Signs: 14:57 BP 126 / 69; Pulse 85; Resp 18; Temp 98.7; Pulse Ox 96% on R/A; Weight 81.65 kg; Height ss 6 ft. 0 in. (182.88 cm); Pain 0/10; 15:59 BP 134 / 77; Pulse 81; Resp 15; Pulse Ox 98% ; ko1 16:33 BP 146 / 78; Pulse 79; Resp 16; Pulse Ox 99% ; Pain 0/10; ko1 14:57 Body Mass Index 24.41 (81.65 kg, 182.88 cm) ss [place] Coma Score: 14:59 Eye Response: spontaneous(4). Verbal Response: confused(4). Motor Response: obeys ss commands(6). Total: 14. ED Course: 14:53 Patient arrived in ED. ko1 14:55 Suhali Kovacs is PHCP. jl9 14:55 Mk Yanez MD is Attending Physician. jl9 14:59 Triage completed. ss 14:59 Arm band placed on right wrist. ss 15:39 CT Head Brain wo Cont In Process Unspecified. EDMS 15:48 Tasha Loyola, RN is Primary Nurse. ko1 15:53 XRAY Chest (1 view) In Process Unspecified. EDMS 16:04 CMP Sent. ko1 16:04 Procalcitonin Sent. ko1 16:04 Magnesium Sent. ko1 16:04 Lactate Sent. ko1 16:04 CBC with Diff Sent. ko1 16:04 Troponin HS Sent. ko1 16:07 UDS Sent. ko1 19:51 Patient has correct armband on for positive identification. Placed in gown. Bed in low ll3 position. Call light in reach. Side rails up X 1. 19:51 No provider procedures requiring assistance completed. IV discontinued, intact, ll3 bleeding controlled, No redness/swelling at site. Pressure dressing applied. 19:52 Seizure precautions initiated. ll3 Administered Medications: 17:31 Drug: NS 0.9% 1000 ml Route: IV; Rate: 1000 ml; Site: left forearm; ko1 17:35 Drug: levETIRAcetam 1000 mg Route: IV; Rate: per protocol; Site: left forearm; ko1 Medication: 19:52 VIS not applicable for this client. ll3 Outcome: 19:05 Discharge ordered by . jl9 19:51 Discharged to home ambulatory, with significant other. ll3 19:51 Condition: stable 19:51 Discharge instructions given to patient, significant other, Instructed on discharge instructions, follow up and referral plans. Demonstrated understanding of instructions, follow-up care. 19:52 Patient left the ED. ll3 Signatures: Dispatcher [employer] EDMS Starr Hobbs RN RN Adilene Harrell RN RN jl7 Taiwo Farmer RN RN ll3 Suhail Kovacs jl9 Tasha Loyola RN RN ko1
--- NOTE | 2022-06-28 19:06 | EDPHYS ---
Physician Documentation [facility] Name: Guanakito Arreola Age: 57 yrs Sex: Male : 1965 Arrival Date: 06/28/2022 Time: 14:53 Bed 7 Private MD: Mk Singer HPI: 06/28 16:17 This 57 yrs old Male presents to ER via EMS with complaints of Probable jl9 Seizure. 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 Patient AAOxPPTE and denies any pain or distress. Does not recall having a seizure. . 16:17 The patient presents after having a single isolated seizure, that lasted 20 second(s). jl9 Character of seizure(s): Loss of consciousness: the patient experienced loss of consciousness, Motor activity: generalized, Incontinence: none, Apnea: the patient did not experience apnea, Circulation: the patient did not experience evidence of pulse disturbance, Eye movements: are unknown. Seizure onset: today. Context: occurred at work. Seizure Hx: the patient has no previous seizure history. Associated injury: The patient did not suffer any apparent associated injury. EMS care: none. Current symptoms: Currently, the patient is not experiencing any symptoms. The patient has not experienced similar symptoms in the past. Historical: - Allergies: 14:59 Unable to obtain; ss - PMHx: 14:59 Hypertensive disorder; ss - Immunization history:: Adult Immunizations unknown, Client reports receiving the 2nd dose of the Covid vaccine. - Social history:: Patient uses alcohol, Drinks on Wednesdays and Saturdays only, approximately 4 beers. Smoking status: Patient denies any tobacco usage or history of. ROS: 16:19 Constitutional: Negative for fever, chills, and weight loss, Eyes: Negative for injury, jl9 pain, redness, and discharge, ENT: Negative for injury, pain, and discharge, Neck: Negative for injury, pain, and swelling, Cardiovascular: Negative for chest pain, palpitations, and edema, Respiratory: Negative for shortness of breath, cough, wheezing, and pleuritic chest pain, Abdomen/GI: Negative for abdominal pain, nausea, vomiting, diarrhea, and constipation, Back: Negative for injury and pain, : Negative for injury, bleeding, discharge, and swelling, MS/Extremity: Negative for injury and deformity, Skin: Negative for injury, rash, and discoloration. 16:19 Psych: Negative for depression, anxiety, suicide ideation, homicidal ideation, and hallucinations, Allergy/Immunology: Negative for hives, rash, and allergies, Endocrine: Negative for neck swelling, polydipsia, polyuria, polyphagia, and marked weight changes, Hematologic/Lymphatic: Negative for swollen nodes, abnormal bleeding, and unusual bruising. 16:19 Neuro: Positive for seizure activity. Exam: 16:19 Constitutional: This is a well developed, well nourished patient who is awake, alert, jl9 and in no acute distress. Head/Face: Normocephalic, atraumatic. Eyes: Pupils equal round and reactive to light, extra-ocular motions intact. Lids and lashes normal. Conjunctiva and sclera are non-icteric and not injected. Cornea within normal limits. Periorbital areas with no swelling, redness, or edema. ENT: Mucous membranes moist. Neck: Trachea midline, no thyromegaly or masses palpated, and no cervical lymphadenopathy. Supple, full range of motion without nuchal rigidity, or vertebral point tenderness. No Meningismus. Chest/axilla: Normal chest wall appearance and motion. Nontender with no deformity. No lesions are appreciated. Cardiovascular: Regular rate and rhythm with a normal S1 and S2. No gallops, murmurs, or rubs. Normal PMI, no JVD. No pulse deficits. Respiratory: Lungs have equal breath sounds bilaterally, clear to auscultation and percussion. No rales, rhonchi or wheezes noted. No increased work of breathing, no retractions or nasal flaring. Abdomen/GI: Soft, non-tender, with normal bowel sounds. No distension or tympany. No guarding or rebound. No evidence of tenderness throughout. Back: No spinal tenderness. No costovertebral tenderness. Full range of motion. Skin: Warm, dry with normal turgor. Normal color with no rashes, no lesions, and no evidence of cellulitis. MS/ Extremity: Pulses equal, no cyanosis. Neurovascular intact. Full, normal range of motion. Neuro: Awake and alert, GCS 15, oriented to person, place, time, and situation. Cranial nerves II-XII grossly intact. Motor strength 5/5 in all extremities. Sensory grossly intact. Cerebellar exam normal. Normal gait. Psych: Awake, alert, with orientation to person, place and time. Behavior, mood, and affect are within normal limits. Vital Signs: 14:57 BP 126 / 69; Pulse 85; Resp 18; Temp 98.7; Pulse Ox 96% on R/A; Weight 81.65 kg; Height ss 6 ft. 0 in. (182.88 cm); Pain 0/10; 15:59 BP 134 / 77; Pulse 81; Resp 15; Pulse Ox 98% ; ko1 16:33 BP 146 / 78; Pulse 79; Resp 16; Pulse Ox 99% ; Pain 0/10; ko1 14:57 Body Mass Index 24.41 (81.65 kg, 182.88 cm) ss Melody Coma Score: 14:59 Eye Response: spontaneous(4). Verbal Response: confused(4). Motor Response: obeys ss commands(6). Total: 14. MDM: 14:55 Patient medically screened. jl9 16:19 Data reviewed: vital signs, nurses notes. jl9 18:24 Test interpretation: by ED physician or midlevel provider: ECG. 9 18:41 Differential diagnosis: cerebral vascular accident, drug overdose, seizure, TIA. jl9 Counseling: I had a detailed discussion with the patient and/or guardian regarding: the historical points, exam findings, and any diagnostic results supporting the discharge/admit diagnosis, lab results, radiology results, the need for outpatient follow up, a neurologist. 19:04 Counseling: I had a detailed discussion with the patient and/or guardian regarding: jl9 Patient wishes to go home and not wait for the repeat lactate. Patient states he is asymptomatic. Partner at bedside. Patient agrees to follow up with neurology.. 06/28 15:06 Order name: CBC with Diff; Complete Time: 16:17 06/28 15:06 Order name: Troponin HS; Complete Time: 17:27 06/28 15:06 Order name: UDS; Complete Time: 16:35 06/28 15:06 Order name: Magnesium; Complete Time: 17:27 06/28 15:06 Order name: Lactate; Complete Time: 16:52 06/28 15:06 Order name: Procalcitonin; Complete Time: 17:27 06/28 15:06 Order name: XRAY Chest (1 view); Complete Time: 16:35 06/28 15:06 Order name: CT Head Brain wo Cont; Complete Time: 16:17 [facility] 06/28 15:06 Order name: CMP; Complete Time: 17:27 06/28 16:11 Order name: Urine Dipstick-Ancillary; Complete Time: 16:17 [facility] 06/28 16:12 Order name: CBC Smear Scan; Complete Time: 16:17 [facility] 06/28 15:06 Order name: EKG; Complete Time: 15:07 06/28 15:06 Order name: Cardiac monitoring; Complete Time: 15:48 06/28 15:06 Order name: EKG - Nurse/Tech; Complete Time: 16:01 [facility] 06/28 15:06 Order name: IV Saline Lock; Complete Time: 16:01 06/28 15:06 Order name: Labs collected and sent; Complete Time: 16:01 06/28 15:06 Order name: O2 Per Protocol; Complete Time: 15:48 06/28 15:06 Order name: O2 Sat Monitoring; Complete Time: 15:48 06/28 15:06 Order name: Urine Dipstick-Ancillary (obtain specimen); Complete Time: 16:07 [facility] 06/28 16:16 Order name: Labs - recollect needed: recollect green top; Complete Time: 16:43 bd Administered Medications: 17:31 Drug: NS 0.9% 1000 ml Route: IV; Rate: 1000 ml; Site: left forearm; ko1 17:35 Drug: levETIRAcetam 1000 mg Route: IV; Rate: per protocol; Site: left forearm; ko1 Disposition Summary: 06/28/22 19:05 Discharge Ordered Location: Home jl9 Condition: Stable jl9 Diagnosis - Other seizures jl9 Followup: jl9 - With: Private Physician - When: 1 - 2 days - Reason: Recheck today's complaints, Continuance of care, Re-evaluation by your physician Discharge Instructions: - Discharge Summary Sheet jl9 - Seizure, Adult jl9 Forms: - Medication Reconciliation Form jl9 - Thank You Letter jl9 - Antibiotic Education jl9 - Prescription Opioid Use jl9 Signatures: Dispatcher [facility] Katt Polanco Starr Hobbs RN RN Suhail Lima jlTasha Duarte RN RN [email or web address] Corrections: (The following items were deleted from the chart) 19:06 17:59 LACTATE+C.BABATUNDE.ABIMAEL ordered. EDMS EDMS
[2022-06-28 22:47] VITALS: TEMP 98.7
[2022-06-28 22:59] VITALS: BP 146/78; O2SAT 99
--- NOTE | 2022-07-01 05:42 | EKG ---
Test Date: 2022-06-28 Test Time: 16:02:19 Fingernail Former: ALEXANDER MEASUREMENT RESULTS: Intervals: Rate: 74 TN: 178 QRSD: 114 QT: 402 QTc: 446 [place]: P: 62 TN: 178 QRS: 56 T: 42 INTERPRETIVE STATEMENTS: Normal sinus rhythm Incomplete right bundle branch block Borderline ECG Compared to ECG 12/25/2021 13:28:02 Incomplete right bundle-branch block now present Electronically Signed On 07-01-22 05:39:33 CDT by Paulino Tobias
== END 2022-06-28 19:52 | disposition home or self-care (01) ==
LOC: ER 14:48
DX: G40.89 Other seizures (principal); I10 Essential (primary) hypertension
CPT/HCPCS: 93005; 85025; 36415; 83735; 83605; 81003; 84484; 80053; 84145; 80307; 70450; 71045; 96374; 99284; J1953; J7030